=== PATIENT | female | born 1975 | race Two or more races ===

== ENCOUNTER → 2020-10-02 | Outpatient (CLI) | payer OTHER ==
--- NOTE | 2020-10-03 04:36 | RAD ---
STUDY: US PELVIS W/TV HISTORY: Excessive menstruation. COMPARISON: None. TECHNIQUE: Pelvic ultrasound was performed with transabdominal and transvaginal probes. FINDINGS: The uterus measures 10.7 x 6.7 x 3.8 cm. Thickened endometrium measuring up to 1.4 cm. Peripheral rim and central line of hyperechogenicity with intervening hypoechogenicity typical of the late prolifer ative phase. Normal vascularity. No endometrial canal fluid. Unremarkable uterine parenchyma. The right ovary measures 3.9 x 2.4 x 1.8 cm and the left ovary 4.5 x 1.7 x 1.7 cm. Normal Doppler anastacia w is maintained. Small cysts/follicles on the left the largest measuring up to 2.5 cm. No free pelvic fluid. IMPRESSION: 1. Within normal limits sonographic appearance of the uterus and endometrium. 2. Normal Doppler flow to both ovaries. Small ovarian cysts/follicles on the left measuring up to 2. 5 cm. No complex cyst or mass that would warrant dedicated follow-up. 3. No free pelvic fluid. Electronically signed by: SURAJ ENRIQUE MD (10/03/2020 4:33 AM) [facility]
== END ==
LOC: US 15:48
PROVIDERS: ATTEND Obstetrics & Gynecology
DX: N92.0 Excessive and frequent menstruation with regular cycle (principal); N94.6 Dysmenorrhea, unspecified
CPT/HCPCS: 76830; 76856

== ENCOUNTER 2020-11-28 07:44 | Day surgery (SDC) | payer OTHER ==
[~2020-11-28] VITALS: Ht 162.6 cm; Wt 87.0 kg
[~2020-11-28 07:44] MED LIST: FERR325T14 PO; HYDROmorphone 2 MG/ML VIAL IVP PRN; IV RINGERS,LACTATED 1000ML 1,000 ML IV SCH; MORPHINE SULFATE 2 MG/ML VIAL. IVP PRN; PROCHLORPERAZINE 10 MG/2 ML VIAL. IVP PRN; fentaNYL PF VIAL 100 MCG/2 ML VIAL IVP PRN
[2020-11-28] MEDS ORDERED: ONDANSETRON PF 4 MG/2 ML VIAL. ONE ×2 (08:39)
[2020-11-28] MEDS ORDERED: DEXAMETHASONE SOD PHOS 4 MG/ML VIAL ONE (08:39)
[2020-11-28] MEDS ORDERED: PROPOFOL 10 MG/ML (20ML) VIAL. IV ONE (08:40)
[2020-11-28] MEDS ORDERED: LIDOCAINE 2% PF 5 ML VIAL. ONE (08:40)
[2020-11-28] MEDS ORDERED: fentaNYL PF VIAL 100 MCG/2 ML VIAL ONE ×2 (09:51→10:20)
--- NOTE | 2020-11-28 09:58 | PDOC ---
BRIEF OPERATIVE NOTE Date: Nov 28, 2020 Pre-Op Diagnosis 1. Menorrhagia 2. Dysmenorrhea Post-Op Diagnosis Same Procedure Performed Endometrial Ablation Surgeon Dr. Roblero Anesthesia Type: General Blood Loss 10 ml Specimens Obtained none Findings enlarged uterus Complications none Operative Note see dictation JOHANNE ROBLERO Jr, MD Nov 28, 2020 09:58
--- NOTE | 2020-11-28 10:00 | DISCH ---
DISCHARGE INSTRUCTIONS Condition on Discharge Condition on Discharge: Stable Activity After Discharge Activity Instructions for Disc: Activity as tolerated Lifting Instructions after Dis: No heavy lifting Driving Instructions after Dis: Do not drive today Diet after Discharge Diet after Discharge: Regular Contacting the DROliverio after DC Call your doctor for: Concerns you may have Follow-Up Follow up with: Dr. Roblero in 1 week JOHANNE ROBLERO Jr, MD Nov 28, 2020 10:00
[2020-11-28] MEDS ORDERED: OXYC-325 PO (10:15)
[2020-11-28] MEDS ORDERED: oxyCODONE/APAP 5/325 1 TAB TABLET PO ONE ×3 (10:15)
[2020-11-28 10:45] VITALS: BP 122/54
--- NOTE | 2020-11-28 14:03 | OP ---
DATE OF SURGERY: 11/28/2020 PREOPERATIVE DIAGNOSES: 1. Menorrhagia. 2. Dysmenorrhea. POSTOPERATIVE DIAGNOSES: 1. Menorrhagia. 2. Dysmenorrhea. PROCEDURE: Endometrial ablation. SURGEON: Silas Roblero MD ANESTHESIA: GETA. ESTIMATED BLOOD LOSS: 10 mL. COMPLICATIONS: None. FINDINGS: Enlarged uterus. SUMMARY: This is a 45-year-old female with menorrhagia and dysmenorrhea, requiring endometrial ablation. The patient was counseled on the risks, benefits and expectations, voiced clear understanding to proceed. DESCRIPTION OF PROCEDURE: The patient was taken to the surgery suite and placed in dorsal supine position. She was prepped with Betadine solution and draped in a sterile fashion. After adequate anesthesia, weighted speculum and curved Nicky placed vaginally. Anterior lip of the cervix was grasped with single-tooth tenaculum. Uterus was sounded to 9 cm in length. The cervix was dilated with Hegar dilators up to size 7. The NovaSure device was then placed. A length of greater than a 6.5 cm was used and the width was 2.5 cm. The cycle took 1 minute 30 seconds for the ablation. The NovaSure device was then removed. Single-tooth tenaculum and weighted speculum were also removed. The patient tolerated the procedure well and was taken to recovery room in stable condition. Sponge counts were correct x3. LEONELA/WOODROW/FIDENCIO DR: LEONELA/jonathan TID: [id number]
== END 2020-11-28 11:10 | disposition home or self-care (01) ==
LOC: SURG 07:44
PROVIDERS: ATTEND Obstetrics & Gynecology
DX: N92.0 Excessive and frequent menstruation with regular cycle (principal); N94.6 Dysmenorrhea, unspecified; Z87.891 Personal history of nicotine dependence; Z98.51 Tubal ligation status; Z98.890 Other specified postprocedural states; Z79.899 Other long term (current) drug therapy; Z72.89 Other problems related to lifestyle; Z20.822 Contact with and (suspected) exposure to COVID-19
CPT/HCPCS: 58353; 81025; 87426; A4930; J0690; J1100; J2405; J2704; J3010; U0003; U0005